=== PATIENT | male | born 1950 | race Caucasian/White ===

== ENCOUNTER 2018-10-01 22:17 | Observation (INO) | payer OTHER, MEDICARE ==
[2018-10-01] MEDS ORDERED: fentaNYL 100 MCG/2 ML INJ IVP ONE ×2 (22:38→23:41)
[2018-10-01] MEDS ORDERED: NS 1,000 ML IV ONE ×2 (22:38→23:31)
[2018-10-01] MEDS ORDERED: ONDANSETRON 4 MG/2 ML VIAL IVP ONE (22:38)
--- NOTE | 2018-10-01 22:38 | EDPHY ---
General <Cornell Jurado - Last Filed: 10/03/18 02:37> - Diagnostics Imaging: Discussed imaging studies w/ marketing information analyst Radiologist, I viewed and interpreted images myself - History History Review: I reviewed the patient's medical records Smoking Status: Never smoked <Mauricio Esquivel - Last Filed: 10/03/18 15:45> Time Seen by Provider: 10/01/18 22:24 Narrative: CHIEF COMPLAINT: Kidney stone HISTORY OF PRESENT ILLNESS: Patient presents private vehicle with complaints of kidney stone. He states pain left flank started 3 days ago. It was moderate to severe over the 1st 24 hr. Improved yesterday after leftover oral Dilaudid and norco from previous surgical procedure. His pain radiates down the left abdomen. He has no testicular/scrotal pain. He has some dysuria and urinary frequency. No hesitation. No difficulty urinating. No fever. No nausea vomiting. The pain is the same as his previous kidney stones that all past without intervention. This 1 has lasted longer than the others. He has no trauma injury. No vomiting constipation. No diarrhea. No other associated complaints or modifying factors. REVIEW OF SYSTEMS: 10 systems were reviewed and negative with the exception of the elements mentioned in the history of present illness. SPECIALISTS: Urologist PAST MEDICAL HISTORY: Renal colic, BPH, thyroid PAST SURGICAL HISTORY: No surgical history SOCIAL HISTORY: Never smoker. Lives independently. Works as a CPA. FAMILY HISTORY: Noncontributory EXAMINATION: Vitals: Triage VS reviewed General Appearance: Alert, no distress. Well appearing. Head: normocephalic, atraumatic Eyes: Pupils equal and round, no conjunctival pallor or injection ENT, Mouth: Mucous membranes moist Neck: Normal inspection, supple, non-tender Respiratory: Lungs are clear to auscultation Cardiovascular: Regular rate and rhythm Gastrointestinal: Abdomen is soft and nondistended. There is left CVA tenderness. No lower abdominal tenderness. No guarding. No tympany rigidity. Bowel sounds present all 4 quadrants. Skin: Warm and dry, no rash Extremities: Nontender, no pedal edema Psychiatric: Mood and affect normal DIFFERENTIAL DIAGNOSES: Including but not limited to renal colic, ureteral stone, hydronephrosis, pyelonephritis, colitis, diverticulitis MDM: 10:25 p.m. Acute left-sided flank pain with history examination that suggest renal colic. Vital signs are within normal limits. No SIRS criteria. Urinalysis is currently being obtained. I have ordered CT scan to visualize the tract. Pain medication ordered. No acute distress 11:00 p.m. Creatinine is slightly evaluated. He does have history of slight elevation in the past. This is somewhat higher but less than 2. No leukocytosis. Urinalysis shows no infection. 11:20 p.m. Case discussed with radiologist. There is a left ureteral stone at the UVJ, 3.5 mm with some hydronephrosis. There is incidental note of a right-sided cystic structure that appears to be benign near the kidney. I discussed this with the patient. He thinks that this has been present on a previous imaging but he states that he will follow up with primary care physician for this. I discussed case with Dr. Jurado. We will provide a 2nd L of IV fluid and re- evaluate his renal function. 12:15 a.m. At this time Dr. Jurado has assume care the patient. He is pending fluid resuscitation re-evaluation was renal function. Please see his note for final disposition. SUPERVISION: Patient was independently examined, but I discussed the case with my secondary supervising physician Dr. Jurado CONSULTATION: None. Urology and primary care referral (Mauricio Esquivel) Medical Decision Makin: I did go re-evaluate the patient is resting comfortably. In no acute distress. He denies any flank pain, vomiting states pain is well controlled he would like to be discharged home. Does have a kidney stone. He needs to follow up with Urology. Creatinine and BUN noted to be elevated. Patient reports to me he always has an elevated BUN and creatinine. Patient received 2 L of fluid here in the emergency room. 0305: I spoke with Dr. Whittaker, urology on-call recommends the patient gets admitted. Patient has a left-sided hydronephrosis hydroureter 3.5 mm stone. Elevated creatinine. Elevated BUN. Received 2 L here in the emergency room without any improvement. Additionally there is a cystic tubular structure retroperitoneal on the right side. This is new when I compare this to his old CT scan in the system 72 months ago. He does not have any significant right flank pain. Is unclear what this right tubular Cystic structure is. Plan for hospital admission to the hospital serous Urology to consult. I updated the patient about all his test results, creatinine, BUN, CT results. Patient agrees for admission. Will consult the hospitalist service for admission. [id number]: Spoke with Hospalist Dr. Fitzgerald agrees to admit ADMIT FOR KIDNEY STONE, LEFT SIDED. ADMIT FOR TUBULAR STRUCTURE/ABNORMAL CT ADMIT FOR HO DESPITE 2LNS. PATIENT AGREES FOR ADMISSION. (Cornell Jurado) - Objective Vital Signs: Initial Vital Signs Heart Rate 83 10/01/18 22:19 Respiratory Rate 18 10/01/18 22:19 Blood Pressure 176/91 H 10/01/18 22:19 O2 Sat (%) 90 L 10/01/18 22:19 O2 Delivery Mode Room Air Allergies/Adverse Reactions: Wwdkpos-Ynw-Jhf Reductase Inhibitor Allergy (Verified 10/01/18 22:19) Rash Home Medications: Medication Instructions Recorded AMLODIPINE BESYLATE/BENAZEPRIL 1 each PO DAILY 11/13/12 [Lotrel 10-40 mg] Ezetimibe [Zetia 10 MG (*)] 10 mg PO DAILY 11/13/12 Levothyroxine [Synthroid 112 mcg 112 mcg PO DAILY 11/13/12 (*)] Ondansetron Odt [Zofran Odt 4 mg 4 mg PO Q6 PRN #12 tab 10/01/18 (*)] oxyCODONE HCL/ACETAMINOPHEN 1 each PO Q4-6PRN PRN #11 tablet 10/01/18 [Percocet 5-325 mg Tablet] Glucosamine Sulfate [Glucosamine 500 mg PO DAILY 10/02/18 Sulfate 500 MG (*)] Herbals/Supplements -Info Only 1 each PO DAILY 10/02/18 Hydrochlorothiazide [HCTZ (*)] 25 mg PO DAILY 10/02/18 Tamsulosin HCl [Flomax 0.4 MG (*)] 0.4 mg PO DAILY 10/02/18 Laboratory Results: Laboratory Results 10/01/18 22:45 10/02/18 00:46 Medications Given: Discontinued Medications Amlodipine Besylate (Norvasc) 10 mg PO DAILY [facility] Stop: 03/31/19 11:44 Last Admin: 10/02/18 14:04 Dose: Not Given Benazepril HCl (Lotensin) 40 mg PO DAILY [facility] Stop: 03/31/19 11:44 Last Admin: 10/02/18 14:04 Dose: Not Given Fentanyl (Sublimaze) 100 mcg IVP EDNOW ONE Stop: 10/01/18 22:39 Last Admin: 10/01/18 22:54 Dose: 100 mcg Fentanyl (Sublimaze) 100 mcg IVP EDNOW ONE Stop: 10/01/18 23:42 Last Admin: 10/01/18 23:45 Dose: 100 mcg Sodium Chloride (Ns) 1,000 mls @ 0 mls/hr IV EDNOW ONE; Wide Open PRN Reason: Protocol Stop: 10/01/18 22:39 Last Admin: 10/01/18 22:55 Dose: 1,000 mls Sodium Chloride (Ns) 1,000 mls @ 0 mls/hr IV EDNOW ONE; Wide Open PRN Reason: Protocol Stop: 10/01/18 23:32 Last Admin: 10/01/18 23:35 Dose: 1,000 mls Sodium Chloride (Ns) 1,000 mls @ 75 mls/hr IV CONT NIDA Stop: 03/31/19 03:44 Last Admin: 10/02/18 05:03 Dose: 1,000 mls Ondansetron HCl (Zofran) 4 mg IVP EDNOW ONE Stop: 10/01/18 22:39 Last Admin: 10/01/18 22:54 Dose: 4 mg Oxycodone/Acetaminophen (Percocet 5/325mg Prepack#4) 1 btl TAKEHOME EDNOW ONE Stop: 10/02/18 00:42 Last Admin: 10/02/18 03:55 Dose: Not Given Tamsulosin HCl (Flomax) 0.4 mg PO EDNOW ONE Stop: 10/01/18 23:32 Last Admin: 10/01/18 23:35 Dose: 0.4 mg Tamsulosin HCl (Flomax) 0.4 mg PO DAILY NIDA Stop: 03/31/19 11:44 Last Admin: 10/02/18 14:04 Dose: Not Given Point of Care Test Results: Chemistry 10/01/18 22:53 POC Sodium 138 mEq/L mEq/L (135-145) POC Potassium 4.2 mEq/L mEq/L (3.3-5.0) POC Chloride 102 mEq/L mEq/L (97-110) POC BUN 35 mg/dL H mg/dL (7-23) POC Creatinine 1.8 mg/dL H mg/dL (0.7-1.3) POC Glucose 120 mg/dL H mg/dL (70-100) ISTAT H&H 10/01/18 22:53 POC Hgb 15.0 gm/dL gm/dL (13.7-17.5) POC Hct 44 % % (40-51) ED Course Re-evaluation (time) #1: 02:46 <Cornell Jurado - Last Filed: 10/03/18 02:37> Departure <Cornell Jurado - Last Filed: 10/03/18 02:37> <Mauricio Esquivel - Last Filed: 10/03/18 15:45> - Departure Disposition: [facility] Inpatient Acute Clinical Impression: Ureteral colic, Flank pain, Abnormal radiologic findings on diagnostic imaging of right kidney Hydronephrosis Qualifiers: Hydronephrosis type: with ureteropelvic junction obstruction Qualified Code(s) : Q62.11 - Congenital occlusion of ureteropelvic junction Condition: Good
[2018-10-01 23:01] LABS: PLATELET COUNT 208 10^3/uL (150-400)
[2018-10-01] MEDS ORDERED: TAMSULOSIN HCL 0.4 MG CAP PO ONE (23:31)
[2018-10-02] MEDS ORDERED: OXYCODONE/APAP 5/325MG PREPACK#4 BTL TAKEHOME ONE (00:41)
[2018-10-02] MEDS ORDERED: ACETAMINOPHEN 325 MG TAB PO PRN (03:40)
[2018-10-02] MEDS ORDERED: ONDANSETRON DISINTEGRATING 4 MG TAB PO PRN (03:40)
[2018-10-02] MEDS ORDERED: HYDROCODONE/APAP 5/325 TAB PO PRN (03:40)
[2018-10-02] MEDS ORDERED: LORazepam 2 MG/ML INJ IVP PRN (03:40)
[2018-10-02] MEDS ORDERED: ONDANSETRON 4 MG/2 ML VIAL IVP PRN (03:40)
[2018-10-02] MEDS ORDERED: NS 1,000 ML IV SCH (03:45)
[2018-10-02 05:42] LABS: PLATELET COUNT 183 10^3/uL (150-400)
--- NOTE | 2018-10-02 06:31 | PDGENHP ---
History and Physical - Chief Complaint left flank pain - History of Present Illness Source - Patient provides history and appears reliable. EMR reviewed and case discussed with ED provider. HPI - this is a very pleasant 68-year-old gentleman with a past medical history significant for HTN, HLD, hypothyroidism, recurrent kidney stone the who presents to the emergency department today with complaints of several day history of severe in increasing left flank pain. Patient notes a history of recurrent kidney stones which he is always been able to pass without any intervention. Home patient's pain was increasing in severity despite use of p. O. Dilaudid [place]ear that he had remnant from previous procedures. He did have some temporary relief but his pain continued to worsen. Patient had noted some increased frequency and decreased stream today. He he noted to the ED provider some dysuria and scrotal pain but at time of my interview he denies. Patient did not have any fevers, chills, sweats. Patient received fentanyl and Flomax in the emergency department at time of my interview patient's pain is completely resolved. History Information - Allergies/Home Medication List Allergies/Adverse Reactions: Pgvclgt-Vfu-Nzm Reductase Inhibitor Allergy (Verified 10/01/18 22:19) Rash Home Medications: AMLODIPINE BESYLATE/BENAZEPRIL [Lotrel 10-40 mg] 1 each PO DAILY 11/13/12 [Last Taken Unknown] Aspirin [Aspir 81] 81 mg PO DAILY 11/13/12 [Last Taken Unknown] Ezetimibe [Zetia 10 MG (RX)] 10 mg PO DAILY 11/13/12 [Last Taken Unknown] Levothyroxine [Synthroid 112 mcg (RX)] 112 mcg PO DAILY 11/13/12 [Last Taken Unknown] I have personally reviewed and updated: family history, medical history, social history, surgical history - Past Medical History Additional medical history: HTN, HLD, hypothyroidism, kidney stones since 1982. BPH is listed in EMR. - Surgical History Additional surgical history: Multiple orthopedic surgeries including cervical lumbar and knee. Patient denies any abdominal or urologic surgeries previously. 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 Cor status- full. Review of Systems Review of Systems: ROS: 10pt was reviewed & negative except for what was stated in HPI & below Constitutional: Reports: no symptoms Cardiac: Reports: no symptoms Respiratory: Reports: no symptoms Gastrointestinal: Reports: abdominal distention (Patient reports the last 2 years his abdomen has been more distended but nothing acutely changed today.) Genitourinary: Reports: flank pain (See HPI), frequency, other (Patient reports some difficulty with flow and stream which has decreased since yesterday. He denies any sensation of retention.). Denies: burning, dysuria, incontinence Physical Exam Physical Exam: Selected Entries 10/01/18 22:19 Blood Pressure Automatic Method Heart Rate 83 Respiratory 18 Rate O2 Sat (%) 90 L Blood Pressure 176/91 H Mean Arterial 119 H Pressure (MAP) O2 Delivery Room Air Mode Temperature Oral Source Temp Pulse Resp BP Pulse Ox 36.9 C 70 16 126/79 H 92 10/02/18 04:18 10/02/18 04:18 10/02/18 04:18 10/02/18 04:18 10/02/18 04:18 Constitutional: no apparent distress, appears nourished, not in pain, other ( NAD. Patient is resting in bed comfortably with home CPAP in place) Eyes: PERRL (Decreased reactivity to light bilaterally and symmetric ), anicteric sclera, EOMI, No scleral injection Ears, Nose, Mouth, Throat: moist mucous membranes, other (CPAP mask in place.) Cardiovascular: regular rate and rhythym, no murmur, rub, or gallop, pulses symmetric bilaterally, No edema Peripheral Pulses: 2+: dorsalis-pedis (R), dorsalis-pedis (L) Respiratory: no respiratory distress, no rales or rhonchi, clear to auscultation , No expiratory wheeze, No inspiratory crackles, No respiratory distress Gastrointestinal: normoactive bowel sounds, soft, non-tender abdomen, no palpable masses, distension (Mildly distended abdomen but soft), No guarding, No rebound Genitourinary: no bladder tenderness, No gallo in urethra Skin: warm, normal color, no rashes or abrasions Musculoskeletal: full muscle strength, other (Patient sits up independently. Moves all extremities.), No generalized weakness Neurologic: AAOx3, other (Grossly nonfocal exam.), No facial droop Psychiatric: interacting appropriately, not anxious, not encephalopathic, thought process linear Lab Data & Imaging Review 10/02/18 05:31 12/13/18 05:31 WBC 7.85 10^3/uL (3.80-9.50) 10/02/18 05:31 RBC 4.72 10^6/uL (4.40-6.38) 10/02/18 05:31 Hgb 13.8 g/dL (13.7-17.5) 10/02/18 05:31 POC Hgb 15.0 gm/dL (13.7-17.5) 10/01/18 22:53 Hct 41.7 % (40.0-51.0) 10/02/18 05:31 POC Hct 44 % (40-51) 10/01/18 22:53 MCV 88.3 fL (81.5-99.8) 10/02/18 05:31 MCH 29.2 pg (27.9-34.1) 10/02/18 05:31 MCHC 33.1 g/dL (32.4-36.7) 10/02/18 05:31 RDW 14.4 % (11.5-15.2) 10/02/18 05:31 Plt Count 183 10^3/uL (150-400) 10/02/18 05:31 MPV 9.8 fL (8.7-11.7) 10/02/18 05:31 Neut % (Auto) 72.1 % (39.3-74.2) 10/02/18 05:31 Lymph % (Auto) 10.6 % (15.0-45.0) L 10/02/18 05:31 Park % (Auto) 14.8 % (4.5-13.0) H 10/02/18 05:31 Eos % (Auto) 1.7 % (0.6-7.6) 10/02/18 05:31 Baso % (Auto) 0.4 % (0.3-1.7) 10/02/18 05:31 Nucleat RBC Rel Count 0.0 % (0.0-0.2) 10/02/18 05:31 Absolute Neuts (auto) 5.67 10^3/uL (1.70-6.50) 10/02/18 05:31 Absolute Lymphs (auto) 0.83 10^3/uL (1.00-3.00) L 10/02/18 05:31 Absolute Monos (auto) 1.16 10^3/uL (0.30-0.80) H 10/02/18 05:31 Absolute Eos (auto) 0.13 10^3/uL (0.03-0.40) 10/02/18 05:31 Absolute Basos (auto) 0.03 10^3/uL (0.02-0.10) 10/02/18 05:31 Absolute Nucleated RBC 0.00 10^3/uL (0-0.01) 10/02/18 05:31 Immature Gran % 0.4 % (0.0-1.1) 10/02/18 05:31 Immature Gran # 0.03 10^3/uL (0.00-0.10) 10/02/18 05:31 POC Sodium 138 mEq/L (135-145) 10/01/18 22:53 Sodium 136 mEq/L (135-145) 10/02/18 00:46 POC Potassium 4.2 mEq/L (3.3-5.0) 10/01/18 22:53 Potassium 4.8 mEq/L (3.5-5.2) 10/02/18 00:46 POC Chloride 102 mEq/L (97-110) 10/01/18 22:53 Chloride 105 mEq/L (97-110) 10/02/18 00:46 Carbon Dioxide 25 mEq/l (22-31) 10/02/18 00:46 Anion Gap 6 mEq/L (6-14) 10/02/18 00:46 POC BUN 35 mg/dL (7-23) H 10/01/18 22:53 BUN 41 mg/dL (7-23) H 10/02/18 00:46 Creatinine 1.7 mg/dL (0.7-1.3) H 10/02/18 00:46 POC Creatinine 1.8 mg/dL (0.7-1.3) H 10/01/18 22:53 Estimated GFR 41 10/02/18 00:46 Glucose 93 mg/dL (70-100) 10/02/18 00:46 POC Glucose 120 mg/dL (70-100) H 10/01/18 22:53 Calcium 8.4 mg/dL (8.5-10.4) L 10/02/18 00:46 Total Bilirubin 0.3 mg/dL (0.1-1.4) 10/01/18 22:45 Conjugated Bilirubin 0.2 mg/dL (0.0-0.5) 10/01/18 22:45 Unconjugated Bilirubin 0.1 mg/dL (0.0-1.1) 10/01/18 22:45 AST 20 IU/L (17-59) 10/01/18 22:45 ALT 29 IU/L (21-72) 10/01/18 22:45 Alkaline Phosphatase 63 IU/L (38-126) 10/01/18 22:45 Total Protein 6.6 g/dL (6.3-8.2) 10/01/18 22:45 Albumin 4.1 g/dL (3.5-5.0) 10/01/18 22:45 Lipase 56 IU/L (23-300) 10/01/18 22:45 Urine Color YELLOW 10/01/18 22:45 Urine Appearance CLEAR 10/01/18 22:45 Urine pH 5.0 (5.0-7.5) 10/01/18 22:45 Ur Specific [place] 1.017 (1.002-1.030) 10/01/18 22:45 Urine Protein NEGATIVE (NEGATIVE) 10/01/18 22:45 Urine Ketones NEGATIVE (NEGATIVE) 10/01/18 22:45 Urine Blood 3+ (NEGATIVE) H 10/01/18 22:45 Urine Nitrate NEGATIVE (NEGATIVE) 10/01/18 22:45 Urine Bilirubin NEGATIVE (NEGATIVE) 10/01/18 22:45 Urine Urobilinogen NEGATIVE EU (0.2-1.0) 10/01/18 22:45 Ur Leukocyte Esterase NEGATIVE (NEGATIVE) 10/01/18 22:45 Urine RBC 25-50 /hpf (0-3) H 10/01/18 22:45 Urine WBC 3-5 /hpf (0-3) H 10/01/18 22:45 Ur Epithelial Cells TRACE /lpf (NONE-1+) 10/01/18 22:45 Urine Mucus TRACE /lpf (NONE-1+) 10/01/18 22:45 Urine Glucose NEGATIVE (NEGATIVE) 10/01/18 22:45 Imaging Review: CT Scan of the Urinary Tract (Abdomen and Pelvis Without Contrast) Clinical Indications: Left flank pain. Suspected renal colic Comparison: August 2012 Technique: Multidetector helical CT imaging was performed from the kidneys to the urinary bladder without contrast. Dose reduction techniques were utilized. Findings: Abdomen: The lung bases are clear. No focal liver lesion. Gallbladder is unremarkable. Pancreas is unremarkable. Spleen is unremarkable. Both adrenal glands are normal in size and appearance. Nonobstructive calculi are seen in both kidneys. There is mild left hydronephrosis. A elongated tubular cystic lesion is seen retroperitoneal beginning posterior to the right kidney extending along the psoas muscle and extending into the right pelvis at the level of the acetabulum. No evidence for adjacent stranding of the retroperitoneal fat. The adjacent iliopsoas muscle is unremarkable. This is separate from the right ureter which is anterior and medial to this lesion. The lesion measures 6.5 cm at the level of the right kidney and extends craniocaudal 20 cm. Hounsfield units are 0-5. Pelvis: A 3.5 mm calculus is seen in the distal left ureter at the ureteral vesicle junction. No significant free fluid in the pelvis. No evidence for small bowel obstruction or diverticulitis. Mild CHRONIC changes seen in the abdominal aorta without evidence for aneurysmal dilatation. Multilevel degenerative change lumbar spine most severe at L4-L5. Impression: 1. 3.5 mm calculus in the distal right ureter at the ureterovesical junction with mild left hydronephrosis and hydroureter. Bilateral nonobstructive nephrolithiasis. 2. Elongated tubular cystic structure retroperitoneal on the right as above. Differential would include urinoma, lymphocele, liquefied hematoma, or cystic lymphangioma. Recommend follow-up. 3. Other chronic findings as above. Results called and discussed with Mauricio Esquivel at 10/01/2018 23:30. Attention: This CT examination is specifically designed to evaluate patients who are clinically suspected of having acute obstructive uropathy. This examination does not use radiographic contrast , and as such, provides only a limited evaluation of the abdomen, pelvis and retroperitoneum. If there is further clinical suspicion for pathological conditions other than obstructive uropathy, a complete CT evaluation of the abdomen and pelvis utilizing intravenous, oral, and rectal contrast should be considered. Dictated By: Alfred Up MD Assessment & Plan Assessment: Pleasant 68-year-old gentleman with history of kidney stones, hypothyroidism, HLD, HTN presents emergency department with complaints of left flank pain. #Nephrolithiasis - bilaterally with left hydronephrosis and hydroureter. Dr. Whittaker with Urology consulted from the emergency department. Patient has been made NPO and he will that the patient this morning. #Abnormal radiologic findings on diagnostic imaging of right kidney (Acute) - patient with a noted in division did not retroperitoneal tubular- cystic structure. Urology consulted as noted above for additional recommendations. #Flank pain (Acute) - pain currently controlled with pain medications available morphine p.r.n. #Weakened urinary stream-patient reports that this is a new development since yesterday. Postvoid residuals ordered. # acute kidney injury - likely related to obstructive process or hypovolemia. Patient is receiving IV fluid supplementation while he is NPO. Urology evaluation as noted above. Chronic medical issues #Benign essential HTN - blood pressure is acceptable at this time continue monitor. Resume patient's home medications when diet is advanced. He is on amlodipine. #HLD - resume Zetia at discharge. #Hypothyroidism - resume levothyroxine supplementation when diet advanced. FEN - IV fluids overnight while NPO. Electrolytes adequate did not require replacement at this time. NPO status pending Urology evaluation. PPX-SCDs. Holding anticoagulation perioperatively. Cor status-full Disposition-patient admitted to observation status on the medical floor at this time pending Urology evaluation and recommendations.
[2018-10-02 07:46] VITALS: BP 123/65
--- NOTE | 2018-10-02 09:20 | ASMTCMCOM ---
CM Note CM Note Notes: Patient admitted through the ED with complaints of severe flank pain. Per CT he has kidneys stones and is suffering from HO. CM to follow for needs, Plan : TBD Date Signed: 10/02/2018 09:20 AM Electronically Signed By:Yasmeen Chow RN
--- NOTE | 2018-10-02 09:28 | HOSPPROG ---
Hospitalist Progress Note Assessment/Plan: 68yo M with history of recurrent kidney stones presented with left flank pain found to have obstructing left kidney stone with hydronephrosis, HO, right retroperineal structure. 1. Acute left obstructing nephrolithiasis: Passed stone this AM. This is recurrent issue for him. Previous stones characterized as calcium oxalate. - Dr Whittaker to see but doubt needs urologic procedure now 2. Right retroperitoneal mass: Cystic. Ddx includes urinoma, lymphocele, liquified hematoma, cystic lymphangioma. I do not see old imaging for comparison. - Appreciate urology input regarding additional recs - I suspect can be followed with outpatient imaging 3. HO on CKD: Likely due to obstruction (now should be resolved) and dehydration. - Continue IVF, follow BMP 4. HTN: Home meds 5. RAÚL: On CPAP Diet: NPO until urologic evaluation VTE ppx: SCDs Dispo: Can likely discharge today with creatinine check as outpatient. Awaiting urology recs. Subjective: Passed stone this AM. Still with some "sand" in urine. No flank pain or fevers. No blood in urine. Wanting to go home. Objective: Vital Signs Temp Pulse Resp BP Pulse Ox 36.9 C 63 12 123/65 H 84 L 10/02/18 04:18 10/02/18 07:40 10/02/18 07:40 10/02/18 07:40 10/02/18 07:40 Laboratory Results 10/02/18 05:31 10/02/18 05:31 10/01/18 10/02/18 10/03/18 05:59 05:59 05:59 Intake Total 2000 Output Total 300 Balance 1700 - Physical Exam Constitutional: no apparent distress, appears nourished, not in pain Eyes: PERRL, anicteric sclera, EOMI Ears, Nose, Mouth, Throat: moist mucous membranes, hearing normal, ears appear normal, no oral mucosal ulcers Cardiovascular: regular rate and rhythym, no murmur, rub, or gallop, No edema Respiratory: no respiratory distress, no rales or rhonchi, clear to auscultation Gastrointestinal: normoactive bowel sounds, soft, non-tender abdomen, no palpable masses Genitourinary: no bladder fullness, no bladder tenderness, no renal bruits Skin: no rashes or abrasions, no fluctuance, no induration Musculoskeletal: full muscle strength, no muscle tenderness, normal joint ROM Neurologic: AAOx3, sensation intact bilaterally Psychiatric: interacting appropriately, not anxious, not encephalopathic, thought process linear ICD10 Worksheet Patient Problems: Problems Problem Status Onset Abnormal radiologic findings on diagnostic imaging of right kidney Acute Flank pain Acute Hydronephrosis Acute Ureteral colic Acute
[2018-10-02] MEDS ORDERED: BENAZEPRIL PO SCH (11:45)
[2018-10-02] MEDS ORDERED: AMLODIPINE BESYLATE PO SCH (11:45)
[2018-10-02] MEDS ORDERED: TAMSULOSIN HCL 0.4 MG CAP PO SCH (11:45)
[2018-10-02] MEDS ORDERED: BENAZEPRIL HCL 20 MG TAB PO SCH (11:45)
--- NOTE | 2018-10-02 12:01 | PDDCSUM ---
Discharge Summary Discharge Summary: Date of Admission: 10/01/2018 Date of Discharge: 10/02/2018 Studies: 1. CT abd/pelvis without IV contrast Discharge Diagnoses: 1. Obstructing left nephrolithiasis (3.5mm) with hydronephrosis, now passed 2. Bilateral non-obstructive nephrolithiasis 3. HO on CKD 4. Right sided retroperitoneal cystic structure on CT 5. HTN 6. RAÚL on CPAP Brief Hospital Course: 68yo M with history of recurrent kidney stones presented with left flank pain found to have obstructing left kidney stone with hydronephrosis and HO. He ended up passing the stone in the hospital and no urologic intervention was necessary. His previous stones have been tested and are calcium oxalate so this one was not sent for testing. His symptoms resolved after passing stone. He did not have evidence of infection. His creatinine was elevated from his baseline ( 1.7 from 1.2-1.4) which I suspect is related to obstruction and dehydration. He will need outpatient labs to monitor this and ensure improving. Additionally, CT of his abdomen did show an elongated tubular cystic structure in his right retroperitoneal space that was new compared to 08/2012 imaging. This measured up to 6.5cm. Differential includes urinoma, lymphocele, liquified hematoma, or cystic lymphangioma. He should have follow up imaging to monitor this but biopsy was not felt necessary at this time. Medications: Please refer to EMR for complete list. No changes were made. Follow Up Plan: 1. To see Dr Whittaker in urology clinic to discuss nephrolithiasis, retroperitoneal mass 2. Needs BMP in 1 week to monitor renal function Physical Exam: Vitals reviewed, afebrile. Alert and oriented, RRR without m/r/g , lungs clear, abdomen soft, no flank ttp, no rashes.
--- NOTE | 2018-10-02 13:27 | ASDISCHSUM ---
Discharge Information Plan Status:Home with No Needs Medically Cleared to Leave:10/01/2018 Discharge Date:10/01/2018 CM D/C Disposition:Home, Routine, Self-Care ADT D/C Disposition:Home, Routine, Self-Care Projected Discharge Date:10/01/2018 Transportation at D/C: Discharge Delay Reason: Follow-Up Date:10/01/2018 Discharge Slot: Final Diagnosis: Placement Information Patient Contact Information Contact Name:BISMARK Relationship: Address:[address] Work Phone: City:[facility] Phone: State/Zip Code:[place] [address] Email: Financial Information Financial Class:Medicare Primary Plan Desc:MEDICARE OUTPATIENT Primary Plan Number:[id number] Secondary Plan Desc:[employer]/M[employer] SUPPLEMENT Secondary Plan Number:[id number] Assessment Information [facility] CM Progress Note CM Note CM Note Notes: Patient admitted through the ED with complaints of severe flank pain. Per CT he has kidneys stones and is suffering from HO. CM to follow for needs, Plan : TBD Date Signed: 10/02/2018 09:20 AM Electronically Signed By:Yasmeen Chow RN Intervention Information
--- NOTE | 2018-10-02 13:28 | ASMTLACE ---
LACE Length of stay for Answers: Less than 1 day current admission Comorbidities - select Answers: Other Notes: Renal all that apply colic; BPH; Thyroid; HT N # of Emergency department Answers: 1-2 visits in the last 6 months Score: 2 Date Signed: 10/02/2018 01:27 PM Electronically Signed By:Yasmeen Chow RN
--- NOTE | 2018-10-02 13:29 | ASMTDCNOTE ---
Case Management Discharge Discharge Order Complete? Answers: Yes Patient to Obtain Answers: Independently Medications Discharge Comments Notes: Patient spontaneously passed kidney stone. To f/u with urology next week. Repeat lab work ordered. No needs identified. Date Signed: 10/02/2018 01:29 PM Electronically Signed By:Yasmeen Chow RN
[2018-10-03] MEDS ORDERED: LEVOTHYROXINE 112 MCG TAB PO SCH (09:00)
[2018-10-03] MEDS ORDERED: EZETIMIBE 10 MG TAB PO SCH (09:00)
[2018-10-03] MEDS ORDERED: HYDROCHLOROTHIAZIDE 25 MG TAB PO SCH (09:00)
== END 2018-10-02 13:48 | disposition home or self-care (01) ==
LOC: F1N 10-02 04:15
PROVIDERS: ADMIT Family Medicine; ATTEND Internal Medicine
DX: N13.2 Hydronephrosis with renal and ureteral calculous obstruction (principal); R19.09 Other intra-abdominal and pelvic swelling, mass and lump; E86.9 Volume depletion, unspecified; N17.9 Acute kidney failure, unspecified; N18.9 Chronic kidney disease, unspecified; I12.9 Hypertensive chronic kidney disease with stage 1 through stage 4 chronic kidney disease, or unspecified chronic kidney disease; G47.33 Obstructive sleep apnea (adult) (pediatric); N40.0 Benign prostatic hyperplasia without lower urinary tract symptoms; E03.9 Hypothyroidism, unspecified
CPT/HCPCS: 74176; 96361; 96374; 96375; 96376; 99285; G0378; J2405; J3010; 82435-PO; 82565-PO; 82947-PO; 84132-PO; 84295-PO; 84520-PO; 85014-PO